=== PATIENT | male | born 1985 | race Native Hawaiian/Other Pacific Islander ===

== ENCOUNTER 2021-11-30 10:27 | Emergency (ER) | payer SELFPAY ==
[~2021-11-30] VITALS: Ht 165.1 cm; Wt 102.1 kg
[2021-11-30 10:40] VITALS: BP 135/82
[2021-11-30] MEDS ORDERED: KETOROLAC 60 MG/2 ML VIAL IM ONE (11:55)
[2021-11-30] MEDS ORDERED: ACET-8386 PO (13:11)
--- NOTE | 2021-11-30 13:28 | NUR ---
PT PLACED IN FABRICATED 4" ORTHO-GLASS LEFT VOLAR SPLINT AND WRAPED WITH 3" BIPIN WRAPS X2 AND ALSO PLACED IN LEFT SHOULDER SLING. CMS WNL BEFORE AND AFTER. ERMD NOTIFIED.
[2021-11-30 13:41] VITALS: BP 132/78
--- NOTE | 2021-11-30 13:43 | NUR ---
DIPatient discharged with v/s stable. Written and verbal after care instructions given and explained. Patient verbalized understanding. Ambulatory with steady gait. All questions addressed prior to discharge. Advised to follow up with PMD. SPLINT IN PLACE, N/C INTACT, NO DISTRESS NOTED ARM SLING PLACED BY TECH
== END 2021-11-30 13:43 | disposition home or self-care (01) ==
LOC: MED 10:27
DX: S63.502A Unspecified sprain of left wrist, initial encounter (principal); Z72.89 Other problems related to lifestyle; Z98.890 Other specified postprocedural states; W18.30XA Fall on same level, unspecified, initial encounter; Y93.89 Activity, other specified; Y92.89 Other specified places as the place of occurrence of the external cause; Y99.8 Other external cause status
CPT/HCPCS: 29125; 73090; 73110; 96372; 99284; J1885